=== PATIENT | female | born 1995 | race Asian ===

== ENCOUNTER 2021-01-01 15:30 | Emergency (ER) | payer SELFPAY ==
[~2021-01-01] VITALS: Ht 160 cm; Wt 52.3 kg
[2021-01-01 15:49] VITALS: BP 140/74
[2021-01-01] MEDS ORDERED: IV NORMAL SALINE 1,000ML 1,000 ML IV ONE (16:00)
[2021-01-01 16:13] LABS: BASO % 0 % (0-3); EOS % 0 % (0-3); HEMATOCRIT 42.5 % (36.0-47.0); HEMOGLOBIN 14.1 g/dL (12.0-15.5); LYMPH # 1.6 x10^3/uL (1.0-4.8); LYMPH % 17 % (24-48); MEAN CORPUSCULAR HEMOGLOBIN 28 pg (25-35); MEAN CORPUSCULAR HGB CONC 33 g/dL (31-37); MEAN CORPUSCULAR VOLUME 85 fL (79-100); MONO # 0.3 x10^3/uL (0.0-1.1); MONO % 3 % (0-9); NEUT # 7.4 x10^3uL (1.8-7.7); NEUT % 79 % (31-73); PLATELET COUNT 268 x10^3/uL (140-400); RED BLOOD COUNT 5.03 x10^6/uL (3.50-5.40); RED CELL DISTRIBUTION WIDTH 14.2 % (11.5-14.5); WHITE BLOOD COUNT 9.4 x10^3/uL (4.0-11.0)
[2021-01-01 16:16] LABS: CREATININE 0.6 mg/dL (0.6-1.0); GFR 123.9; POTASSIUM 3.6 mmol/L (3.5-5.1)
--- NOTE | 2021-01-01 16:17 | PHYS DOC ---
Past History Past Surgical History: No Surgical History Alcohol Use: None General Adult EDM: Chief Complaint: WEAKNESS/GENERALIZED HPI: HPI: 25-year-old female presents with intermittent right-sided weakness. The patient has been having episodes where she feels more numb or weak in the right side in both the upper and lower extremities. These episodes last from a couple minutes up to 10 minutes. She has been having these for several weeks. She went to her primary physician initially she might have a pinched nerve in her neck. She has been seeing a chiropractor which helps some but not completely. Today she has had persistent neck pain at the base of the occiput. Her neck is not stiff. She has free movement but there is a throbbing pain in that location. She went to the primary office and had an episode where the numbness on her right side made her fall. She describes it as not being able to tell her body what to do because she is not getting the feedback of feeling. She denies any significant medical history. She does not drink alcohol. She does not do drugs. She does not feel ill in any other way. Denies fever or chills. Review of Systems: Review of Systems: Constitutional: Denies fever or chills Eyes: Denies change in visual acuity HENT: Denies nasal congestion or sore throat Respiratory: Denies cough or shortness of breath Cardiovascular: Denies chest pain or edema GI: Denies abdominal pain, nausea, vomiting, bloody stools or diarrhea : Denies dysuria Musculoskeletal: Denies back pain or joint pain Integument: Denies rash Neurologic: numbness, weakness, right side. Denies headache, focal weakness or sensory changes Endocrine: Denies polyuria or polydipsia Lymphatic: Denies swollen glands Psychiatric: Denies depression or anxiety Current Medications: Current Meds: Current Medications Medications (Trade) Dose Ordered Sig/Minda Start Time Stop Time Status Last Admin Dose Admin Sodium Chloride 1,000 ml @ 1,000 mls/hr 1X ONCE 01/01/21 16:00 01/01/21 16:59 Allergies: Allergies: Allergies Coded Allergies Type Severity Reaction Last Updated Verified No Known Drug Allergies 01/01/21 No Physical Exam: PE: Constitutional: Well developed, well nourished, no acute distress, non-toxic appearance. [] HENT: Normocephalic, atraumatic, bilateral external ears normal, oropharynx moist, no oral exudates, nose normal. [] Eyes: PERRLA, EOMI, conjunctiva normal, no discharge. [] Neck: Normal range of motion, no tenderness, supple, no stridor. [] Cardiovascular:Heart rate regular rhythm, no murmur [] Lungs & Thorax: Bilateral breath sounds clear to auscultation [] Abdomen: Bowel sounds normal, soft, no tenderness, no masses, no pulsatile masses. [] Skin: Warm, dry, no erythema, no rash. [] Back: No tenderness, no CVA tenderness. [] Extremities: No tenderness, no cyanosis, no clubbing, ROM intact, no edema. [] Neurologic: Alert and oriented X 3, normal motor function, normal sensory function, no focal deficits noted. [] Psychologic: Affect normal, judgement normal, mood normal. [] Current Patient Data: Labs: Laboratory Tests Test 01/01/21 15:40 Glucose (Fingerstick) 119 mg/dL (70-99) H Vital Signs: Vital Signs Date Time Temp Pulse Resp B/P (MAP) Pulse Ox O2 Delivery O2 Flow Rate FiO2 01/01/21 15:49 98.4 87 18 140/74 99 EKG: EKG: Sinus rhythm, rate 88, normal axis, no ST elevation or depression. [] Radiology/Procedures: Radiology/Procedures: [] Impressions: EXAM: Head and cervical spine CT without contrast. HISTORY: Right-sided numbness and neck pain. TECHNIQUE: Computed tomographic images of the head and cervical spine were obtained without contrast. *One or more of the following individualized dose reduction techniques were utilized for this examination: 1. Automated exposure control. 2. Adjustment of the mA and/or kV according to patient size. 3. Use of iterative reconstruction technique. COMPARISON: None. FINDINGS: Head: There is a large heterogeneous hyperdense mass containing cystic components and coarse calcifications within the right cerebral hemisphere. This extends through the right frontal and parietal lobes near the vertex and involves the right lateral ventricle. This measures approximately 6.5 cm anteroposteriorly by 4.4 cm transversely by 7.0 cm craniocaudally. The largest cystic component measures 3.3 cm along the superior lateral aspect of the mass. The mass is associated with extensive surrounding edema and effacement of the right greater than left cerebral sulci. There is also 1.5 cm leftward midline shift and dilatation of the posterior left lateral ventricle likely due to a component of ventricular entrapment. There is cerebellar tonsillar ectopia and effacement of the foramen magnum. Given the aforementioned mass, this likely due to herniation rather than a Chiari malformation. There is an enlarged sella. There is no convincing intracranial hemorrhage. The orbits and visual is paranasal sinuses mastoid air cells are unremarkable. There is no suspicious calvarial lesion. The mastoid air cells are clear. Cervical spine: There is no listhesis. The vertebral galan are normal in height and the disc spaces are preserved. There is no fracture or suspicious lytic or sclerotic osseous lesion. There is no foraminal or central canal stenosis. There is no neck lymphadenopathy. The lung apices are unremarkable. IMPRESSION: 1. Large heterogeneous hyperdense mass containing cystic components and coarse calcifications within the right cerebral hemisphere, either originating from or extending into the right lateral ventricle and resulting in significant surround ing edema. There is effacement of the cerebral sulci, leftward midline shift, suspected entrapment of the left lateral ventricle and cerebellar tonsillar herniation. The mass measures approximately 7.0 cm in maximum dimension. This can be better characterized with a brain MRI with and without contrast. Emergent neurosurgical consultation is indicated. 2. Enlarged sella. This is likely due to increased intracranial pressure from the aforementioned mass and can be better assessed with MRI. 3. No evidence of acute hemorrhage and no acute finding involving the cervical spine or significant cervical foraminal or central canal stenosis. Findings were discussed with Dr. Herrera in the ED at 1645 hours on . FOR INTERNAL CODING PURPOSES RESULT CODE: (C) Electronically signed by: Jazmyne La MD (01/01/2021 5:09 PM) [id number] DICTATED AND SIGNED BY: JAZMYNE LA MD DATE: 01/01/211644 CC: SERGIO HERRERA DO; PCP,NO ~MTH0 0 Heart Score: C/O Chest Pain: N/A Risk Factors: Risk Factors: DM, Current or recent (<one month) smoker, HTN, HLP, family history of CAD, obesity. Risk Scores: Score 0 - 3: 2.5% MACE over next 6 weeks - Discharge Home Score 4 - 6: 20.3% MACE over next 6 weeks - Admit for Clinical Observation Score 7 - 10: 72.7% MACE over next 6 weeks - Early Invasive Strategies Course & Med Decision Making: Course & Med Decision Making Pertinent Labs and Imaging studies reviewed. (See chart for details) The patient's labs are unremarkable. Her CT of the head and cervical spine reveals a large likely intraparenchymal mass with some calcifications. No active bleed. There is midline shift and approaching uncal herniation. Official read is not available at this time. This is a critical diagnosis and the patient needs emergent air transport. We have alerted the helicopter service. I have spoken with the transfer center at and they have a neurosurgical bed. Pending neurosurgeon approval of transfer. has accepted the patient, Dr. Thom Carter. Official CT shows large mass up to 7 cm in greatest dimension with uncal herniation and midline shift. 38 minutes of critical care time was spent on this patient exclusive of other billable procedures. This time was spent in direct care, imaging interpretat ion, coordination of transfer, physician to physician consult, patient education. [] Dragon Disclaimer: Dragon Disclaimer: This electronic medical record was generated, in whole or in part, using a voice recognition dictation system. Departure Departure: Impression: Primary Impression: Neoplasm of brain causing mass effect on adjacent structures Disposition: 02 SHORT TERM HOSPITAL Condition: CRITICAL SERGIO HERRERA DO Jan 01, 2021 16:17
[2021-01-01 16:21] LABS: ALBUMIN 4.1 g/dL (3.4-5.0); ALBUMIN/GLOBULIN RATIO 1.2 (1.0-1.7); MAGNESIUM 1.7 mg/dL (1.8-2.4); TOTAL BILIRUBIN 0.5 mg/dL (0.2-1.0); TOTAL PROTEIN 7.6 g/dL (6.4-8.2)
[2021-01-01] MEDS ORDERED: IOHEXOL 300 MG/ML 75 ML VIAL. IV ONE (16:30)
--- NOTE | 2021-01-01 17:11 | RAD ---
EXAM: Head and cervical spine CT without contrast. HISTORY: Right-sided numbness and neck pain. TECHNIQUE: Computed tomographic images of the head and cervical spine were obtained without contrast. *One or more of the following individualized dose reduction techniques were utilized for this examina tion: 1. Automated exposure control. 2. Adjustment of the mA and/or kV according to patient size. 3. Use of iterative reconstruction technique. COMPARISON: None. FINDINGS: Head: There is a large heterogeneous hyperdense mass containing cystic components and coarse calcific ations within the right cerebral hemisphere. This extends through the right frontal and parietal lobe s near the vertex and involves the right lateral ventricle. This measures approximately 6.5 cm latisha posteriorly by 4.4 cm transversely by 7.0 cm craniocaudally. The largest cystic component measures 3. 3 cm along the superior lateral aspect of the mass. The mass is associated with extensive surrounding edema and effacement of the right greater than left cerebral sulci. There is also 1.5 cm leftward midline shift and dilatation of the posterior left lat eral ventricle likely due to a component of ventricular entrapment. There is cerebellar tonsillar ect opia and effacement of the foramen magnum. Given the aforementioned mass, this likely due to herniati on rather than a Chiari malformation. There is an enlarged sella. There is no convincing intracranial hemorrhage. The orbits and visual is paranasal sinuses mastoid air cells are unremarkable. There is no suspicious calvarial lesion. The mastoid air cells are clear. Cervical spine: There is no listhesis. The vertebral galan are normal in height and the disc spaces ar e preserved. There is no fracture or suspicious lytic or sclerotic osseous lesion. There is no forami nal or central canal stenosis. There is no neck lymphadenopathy. The lung apices are unremarkable. IMPRESSION: 1. Large heterogeneous hyperdense mass containing cystic components and coarse calcifications within the right cerebral hemisphere, either originating from or extending into the right lateral ventricle and resulting in significant surrounding edema. There is effacement of the cerebral sulci, leftward m idline shift, suspected entrapment of the left lateral ventricle and cerebellar tonsillar herniation. The mass measures approximately 7.0 cm in maximum dimension. This can be better characterized with a brain MRI with and without contrast. Emergent neurosurgical consultation is indicated. 2. Enlarged sella. This is likely due to increased intracranial pressure from the aforementioned mass and can be better assessed with MRI. 3. No evidence of acute hemorrhage and no acute finding involving the cervical spine or significant c ervical foraminal or central canal stenosis. Findings were discussed with Dr. Leger in the ED at 1645 hours on . FOR INTERNAL CODING PURPOSES RESULT CODE: (C) Electronically signed by: Jazmyne Krause MD (01/01/2021 5:09 PM) [id number]
--- NOTE | 2021-01-01 17:59 | EKG ---
[address] [address] Test Date: 2021-01-01 Test Time: 15:43:45 Pat Name: PATRICIA LEBRON Department: Room: Gender: F Iridologist: THU : 1995 Requested By: SERGIO HERRERA Order Number: [id number] Reading MD: Measurements Intervals [place] Rate: 88 P: 58 WV: 156 QRS: 42 QRSD: 82 T: 34 QT: 344 QTc: 420 Interpretive Statements SINUS RHYTHM NORMAL ECG RI6.02 No previous ECG available for comparison
== END 2021-01-01 15:34 | disposition short-term general hospital (02) ==
LOC: ER 15:30
DX: D49.6 Neoplasm of unspecified behavior of brain (principal); Z20.822 Contact with and (suspected) exposure to COVID-19
CPT/HCPCS: 36415; 70450; 72125; 80053; 82947; 83735; 84443; 85025; 87426; 93005; 96360; 99285; C9803; J7030; U0003

== ENCOUNTER 2021-04-05 23:16 | Emergency (ER) | payer BC, OTHER ==
[~2021-04-05] VITALS: Ht 160 cm; Wt 52.3 kg
--- NOTE | 2021-04-05 23:24 | PHYS DOC ---
Past History Past Medical History: Seizure Past Surgical History: No Surgical History Alcohol Use: None General Adult HPI: HPI: ".. I woke up with the uncontrolable movements on my Lt side... more in my arm.. tingle.. some head ache... I just completed my 30th radiation tx at ... after my brain surgery... .." I have a brain cancer.. unusual.. Cysts.. it does not respond to Chemo.. actually I doing quite well until tonight.. I was planning on going back to work..." Patient is a 25 year old female who presents with above hx of numbness and tinging feeling and uncontrollable movements on her left side. Patient states the discoordination are uncontrollable flapping almost seizure-like activity in left upper arm is uncontrollable since awakening. Patient did state prior to her 30 radiation treatments and surgery she did have some tremor or unusual movements in left arm and leg but that had all gone away after treatment. Until this morning. The patient in the past has been Keppra which was stopped more than a week ago. Patient now on no antiseizure meds.. Pt. has been following at oncology and oncology surgery for her treatment in the past month. Patient denies any other changes in meds. No history of fever or chills. No history of recent travel. No history of sick ill contacts. No history of trauma. Patient initially seen here back in January 01, 2021 where she presented with intermittent right-sided weakness and numbness. Patient had been seeing a chiropractor with minimal improvement of her symptoms at that time. On that visit patient had a CT of head and a hyperdense cystic mass was found course calcifications. Patient was then eventually transferred to for MRI and further evaluation and neurosurgery evaluation because of findings suggestive of increasing cerebral pressure. Since that time patient is followed almost singularly at for her treatments. Review of Systems: Review of Systems: Constitutional: Denies fever or chills Eyes: Denies change in visual acuity HENT: Denies nasal congestion or sore throat Respiratory: Denies cough or shortness of breath Cardiovascular: Denies chest pain or edema GI: Denies abdominal pain, nausea, vomiting, bloody stools or diarrhea : Denies dysuria Musculoskeletal: Denies back pain or joint pain Integument: Denies rash Neurologic: Complains of mild headache, complains of left upper arm and leg focal weakness, numbness sensory changes in hand. Patient also complaining of kind of flap. Jerking movements of left arm which she cannot control. Endocrine: Denies polyuria or polydipsia Lymphatic: Denies swollen glands Psychiatric: Very anxious and tearful Family History: Family History: Noncontributory to presentation. Current Medications: Current Meds: See nursing for home meds Allergies: Allergies: Allergies Coded Allergies Type Severity Reaction Last Updated Verified No Known Drug Allergies 01/01/21 No Physical Exam: PE: Constitutional: In acute emotional distress, non-toxic appearance. [] HENT: Normocephalic, well healed right parietal scar, bilateral external ears normal, oropharynx moist, no oral exudates, nose normal. [] Eyes: PERRLA, EOMI, conjunctiva normal, no discharge. No obvious field defects Neck: Normal range of motion, no tenderness, supple, no stridor. [] Cardiovascular:Heart rate regular rhythm, no murmur [] Lungs & Thorax: Bilateral breath sounds equal at apex on auscultation [] Abdomen: Bowel sounds normal, soft, no tenderness, no masses, no pulsatile masses. [] Skin: Warm, dry, no erythema, no rash. [] Back: No tenderness, no CVA tenderness. [] Extremities: No tenderness, no cyanosis, no clubbing, ROM intact, no edema. [] Neurologic: Alert and oriented X 3, uncontrollable motor movements in left upper arm more than left lower leg, numbness sensation in left hand,, left-sided focal deficits noted. [] Psychologic: Affect anxious, tearful, judgement normal, mood depressed. EKG: EKG: My interpretation of EKG shows a sinus rhythm at 82 bpm. No acute morphology. Time of EKG is 00 28 minutes (old time )[] Radiology/Procedures: Radiology/Procedures: [[address] [address] IMAGING REPORT Signed PATIENT: PATRICIA LEBRON ACCOUNT: [id number] : 1995 LOCATION: ER AGE: 25 SEX: F EXAM STATUS: REG ER ORD. PHYSICIAN: JAI DUKE MD REASON: seizure, brain mass, SURGERY-DEC 2020, LT SIDE WEAK x A FEW HOURS PROCEDURE: CT ANGIOGRAPHY HEAD AND NECK PQRS Compliance Statement: One or more of the following individualized dose reduction techniques were utilized for this examination: 1. Automated exposure control 2. Adjustment of the mA and/or kV according to patient size 3. Use of iterative reconstruction technique CTA HEAD AND NECK W/WO CONTRAST Clinical Indication: Reason: seizure, brain mass, SURGERY-DEC 2020, LT SIDE WEAK x A FEW HOURS Comparison: CT head without contrast, same day and January 01, 2021. Technique: Helical CT imaging from inferior to the aortic arch to the skull vertex is performed after 75 cc of Omnipaque [address] angiogram protocol. 3-D MIP reconstructions of the cervical carotid arteries and [place] of [place] are performed. PQRS Compliance Statement - Stenosis calculations for CT, MR and conventional angiography are based upon measurement of the distal ICA diameter in accordance with the NASCET methodology. Stenosis calculations for carotid ultrasound studies are derived from validated velocity criteria which are known to correlate with the NASCET methodology. Findings: Aortic arch branches are patent. The cervical carotid arteries are patent. Carotid bifurcations are normal. No evidence of dissection. The cervical vertebral arteries are patent, the left vertebral artery is dominant. Limited evaluation of the proximal left vertebral artery due to artifact from dense con trast in adjacent vein. The basilar artery is patent. Posterior circulation is intact, there is persistent origin of the left [employer] SYSTEM DIRECTOR. There is a small caliber right posterior communicating artery. The distal internal carotid arteries are patent. The anterior circulation is intact. No intracranial artery stenosis or aneurysm is identified. The dural venous sinuses are patent. The right cerebral hemisphere hyperdense mass does not demonstrate appreciable enhancement. Noncontrast CT head findings are redemonstrated. There is no cervical adenopathy. The thyroid is symmetric. The upper lungs are clear. The cervical spine alignment is maintained. IMPRESSION: 1. No intracranial large vessel occlusion. 2. Normal CTA neck. Electronically signed by: Sahil Mcfarlane MD (04/06/2021 1:58 AM) [facility] DICTATED AND SIGNED BY: SAHIL MCFARLANE MD DATE: 04/06/21 0151 CC: JAI DUKE MD; PCP,NO ~MTH0 0 ][address] [address] IMAGING REPORT Signed PATIENT: PATRICIA LEBRON ACCOUNT: [id number] : 1995 LOCATION: ER AGE: 25 SEX: F EXAM STATUS: REG ER ORD. PHYSICIAN: JAI DUKE MD REASON: hx sz, cancera PROCEDURE: PORTABLE CHEST 1V XR CHEST 1V Clinical Indication: Reason: hx sz, cancer Comparison: None. Findings: The cardiomediastinal silhouette is normal. Lungs are clear. There is no pneumothorax. No pleural effusion is appreciated. No acute bone abnormality. IMPRESSION: No acute cardiopulmonary process. Electronically signed by: Sahil Mcfarlane MD (04/06/2021 1:51 AM) [facility] DICTATED AND SIGNED BY: SAHIL MCFARLANE MD DATE: 04/06/21 0150 CC: JAI DUKE MD; PCP,NO ~MTH0 [address] [place] [address] IMAGING REPORT Signed PATIENT: PATRICIA LEBRON ACCOUNT: [id number] : 1995 LOCATION: ER AGE: 25 SEX: F EXAM STATUS: REG ER ORD. PHYSICIAN: JAI DUKE MD REASON: seizure, brain mass PROCEDURE: CT HEAD WO CONTRAST PQRS Compliance Statement: One or more of the following individualized dose reduction techniques were utilized for this examination: 1. Automated exposure control 2. Adjustment of the mA and/or kV according to patient size 3. Use of iterative reconstruction technique CT HEAD WITHOUT CONTRAST History: Reason: seizure, brain mass Comparison: CT head without contrast January 01, 2021. Procedure: Axial images are obtained of the head from the skull base through the vertex without IV contrast. Findings: There is a large right-sided craniotomy. The ventricles and sulci are normal. There is mild right frontal prominent extra-axial CSF. The hyperdense mass with coarse calcifications involving the right frontoparietal lobe with involvement of the right lateral ventricle is significant smaller. The mass now measures approximately 2.5 cm AP by 2.6 cm transverse by 3 cm craniocaudal. No significant surrounding edema is now identified. There is CSF attenuation of the right parietal lobe that is likely encephalomalacia. This may be postsurgical. There is no midline shift or mass effect. The basilar cisterns are patent. No acute loss of quiles-white matter differentiation is identified. There is no acute intraparenchymal hemorrhage. The visualized paranasal sinuses are clear. Mastoid air cells are well aerated. IMPRESSION: 1. No acute intracranial hemorrhage or infarct. 2. The right cerebral hemisphere cystic and solid mass is significantly smaller. No surrounding edema is identified. There are postsurgical changes. Electronically signed by: Sahil Mcfarlane MD (04/06/2021 1:45 AM) [facility] DICTATED AND SIGNED BY: SAHIL MCFARLANE MD DATE: 04/06/21136 CC: JAI DUKE MD; PCP,NO ~MTH0 0 Heart Score: C/O Chest Pain: N/A HEART Score for Chest Pain: HEART Score for Chest Pain Response (Comments) Value History Slighlty/Non-Suspicious 0 ECG Normal 0 Age < 45 0 Risk Factors 1 or 2 Risk Factors 1 Troponin < Normal Limit 0 Total 1 Risk Factors: Risk Factors: DM, Current or recent (<one month) smoker, HTN, HLP, family history of CAD, obesity. Risk Scores: Score 0 - 3: 2.5% MACE over next 6 weeks - Discharge Home Score 4 - 6: 20.3% MACE over next 6 weeks - Admit for Clinical Observation Score 7 - 10: 72.7% MACE over next 6 weeks - Early Invasive Strategies Course & Med Decision Making: Course & Med Decision Making Pertinent Labs and Imaging studies reviewed. (See chart for details) Pt. Seizure like activity had immediate resolution with Ativan and Keppra. Discussed presentation with [facility] transfer. Advised transfer to - Hem/ Onc. Dr. Mcclendon accepting Impression: 1. Atypical Seizure Activity- Lt side > Upper ext. 2. Hx. Cystic Neuro Mass- - Recent Brain surgery and 30 daily Radiation Treatments 3. Anemia with microcytic and hypochromic indices- Hgb= 10.9, MCV 91/MHC 23 4. COVID rapid pending at time of transfer [] Dragon Disclaimer: Dragzenaida Disclaimer: This electronic medical record was generated, in whole or in part, using a voice recognition dictation system. Departure Departure: Referrals: PCP,NO (PCP) Mere Disclaimer This chart was dictated in whole or in part using Voice Recognition software in a busy, high-work load, and often noisy Emergency Department environment. It may contain unintended and wholly unrecognized errors or omissions. JAI DUKE MD Apr 05, 2021 23:24
[2021-04-06] MEDS ORDERED: CONTRAST GIVEN. MC PRN (00:45)
[2021-04-06 00:49] LABS: BASO % 1 % (0-3); EOS # 0.2 x10^3/uL (0.0-0.7); EOS % 3 % (0-3); HEMATOCRIT 33.9 % (36.0-47.0); HEMOGLOBIN 10.9 g/dL (12.0-15.5); LYMPH % 31 % (24-48); MEAN CORPUSCULAR HEMOGLOBIN 23 pg (25-35); MEAN CORPUSCULAR HGB CONC 32 g/dL (31-37); MEAN CORPUSCULAR VOLUME 71 fL (79-100); MONO # 0.6 x10^3/uL (0.0-1.1); MONO % 9 % (0-9); NEUT # 3.6 x10^3uL (1.8-7.7); NEUT % 57 % (31-73); PLATELET COUNT 302 x10^3/uL (140-400); RED BLOOD COUNT 4.75 x10^6/uL (3.50-5.40); RED CELL DISTRIBUTION WIDTH 16.3 % (11.5-14.5); WHITE BLOOD COUNT 6.4 x10^3/uL (4.0-11.0)
[2021-04-06 00:54] LABS: BARBITURATES NEG (NEG); BENZODIAZEPINES NEG (NEG); CANNABINOIDS POS (NEG); COCAINE NEG (NEG); METHADONE NEG (NEG); OPIATES NEG (NEG); PHENCYCLIDINE NEG (NEG)
[2021-04-06 00:55] LABS: AMPHETAMINE/METHAMPHETAMINE NEG (NEG)
[2021-04-06 00:58] LABS: CALCIUM 9.2 mg/dL (8.5-10.1); CREATININE 0.7 mg/dL (0.6-1.0); GFR 103.7; POTASSIUM 3.9 mmol/L (3.5-5.1)
[2021-04-06] MEDS ORDERED: IOHEXOL 350 MG/ML 100 ML VIAL. IV ONE (01:00)
[2021-04-06 01:11] LABS: MAGNESIUM 1.9 mg/dL (1.8-2.4)
--- NOTE | 2021-04-06 01:16 | EKG ---
[address] [address] Test Date: 2021-04-06 Test Time: 00:28:13 Pat Name: PATRICIA LEBRON Department: Room: Gender: F Fire Alarm Mechanic: : 1995 Requested By: JAI DUKE Order Number: [id number] Reading MD: Saman Early Measurements Intervals [place] Rate: 82 P: 69 [place]: 160 QRS: 45 QRSD: 78 T: 39 QT: 344 QTc: 405 Interpretive Statements SINUS RHYTHM NORMAL ECG RI6.02 Compared to ECG 01/01/2021 15:43:45 No significant changes Electronically Signed On 04-07-2021 9:26:21 UPHOLSTERY MECHANIC by Saman Early
[2021-04-06 01:27] LABS: BACTERIA,URINE 0 /HPF (0-FEW); BILIRUBIN,URINE NEG (NEG); CLARITY,URINE CLEAR; COLOR,URINE YELLOW; GLUCOSE,URINE NEG (NEG); NITRITE,URINE NEG (NEG); SQUAMOUS EPITHELIAL CELL,UR FEW /LPF; UROBILINOGEN,URINE 0.2 mg/dL (0.2 mg/dL)
[2021-04-06] MEDS ORDERED: levETIRAcetam 500 MG/5 ML VIAL IV ONE (01:27)
[2021-04-06] MEDS ORDERED: IV NORMAL SALINE 100ML 100 ML ONE (01:27)
--- NOTE | 2021-04-06 01:47 | RAD ---
PQRS Compliance Statement: One or more of the following individualized dose reduction techniques were utilized for this examinat ion: 1. Automated exposure control 2. Adjustment of the mA and/or kV according to patient size 3. Use of iterative reconstruction technique CT HEAD WITHOUT CONTRAST History: Reason: seizure, brain mass Comparison: CT head without contrast January 01, 2021. Procedure: Axial images are obtained of the head from the skull base through the vertex without IV co ntrast. Findings: There is a large right-sided craniotomy. The ventricles and sulci are normal. There is mild right fro ntal prominent extra-axial CSF. The hyperdense mass with coarse calcifications involving the right fr ontoparietal lobe with involvement of the right lateral ventricle is significant smaller. The mass no w measures approximately 2.5 cm AP by 2.6 cm transverse by 3 cm craniocaudal. No significant surround ing edema is now identified. There is CSF attenuation of the right parietal lobe that is likely encep halomalacia. This may be postsurgical. There is no midline shift or mass effect. The basilar cisterns are patent. No acute loss of quiles-white matter differentiation is identified. There is no acute intr aparenchymal hemorrhage. The visualized paranasal sinuses are clear. Mastoid air cells are well aerated. IMPRESSION: 1. No acute intracranial hemorrhage or infarct. 2. The right cerebral hemisphere cystic and solid mass is significantly smaller. No surrounding dali a is identified. There are postsurgical changes. Electronically signed by: Sahil Mcfarlane MD (04/06/2021 1:45 AM) [facility]
[2021-04-06 01:50] VITALS: BP 104/54
--- NOTE | 2021-04-06 01:53 | RAD ---
XR CHEST 1V Clinical Indication: Reason: hx sz, cancer Comparison: None. Findings: The cardiomediastinal silhouette is normal. Lungs are clear. There is no pneumothorax. No pleural eff usion is appreciated. No acute bone abnormality. IMPRESSION: No acute cardiopulmonary process. Electronically signed by: Sahil Mcfarlane MD (04/06/2021 1:51 AM) [facility]
[2021-04-06 01:57] LABS: PLT ESTIMATE ADEQUATE (ADEQUATE)
--- NOTE | 2021-04-06 02:00 | RAD ---
PQRS Compliance Statement: One or more of the following individualized dose reduction techniques were utilized for this examinat ion: 1. Automated exposure control 2. Adjustment of the mA and/or kV according to patient size 3. Use of iterative reconstruction technique CTA HEAD AND NECK W/WO CONTRAST Clinical Indication: Reason: seizure, brain mass, SURGERY-DEC 2020, LT SIDE WEAK x A FEW HOURS Comparison: CT head without contrast, same day and January 01, 2021. Technique: Helical CT imaging from inferior to the aortic arch to the skull vertex is performed after 75 cc of Omnipaque [address] angiogram protocol. 3-D MIP reconstructions of the [place] carotid arteries and [place] are performed. PQRS Compliance Statement - Stenosis calculations for CT, MR and conventional angiography are based u rocio measurement of the distal ICA diameter in accordance with the NASCET methodology. Stenosis calcu lations for carotid ultrasound studies are derived from validated velocity criteria which are known t o correlate with the NASCET methodology. Findings: Aortic arch branches are patent. The cervical carotid arteries are patent. Carotid bifurcations are n ormal. No evidence of dissection. The cervical vertebral arteries are patent, the left vertebral espinoza ry is dominant. Limited evaluation of the proximal left vertebral artery due to artifact from dense c ontrast in adjacent vein. The basilar artery is patent. Posterior circulation is intact, there is per sistent origin of the left [employer]. There is a small caliber right posterior communicating artery. The distal internal carotid arteries are patent. The anterior circulation is intact. No intracranial artery stenosis or aneurysm is identified. The dural venous sinuses are patent. The right cerebral hemisphere hyperdense mass does not demonstra te appreciable enhancement. Noncontrast CT head findings are redemonstrated. There is no cervical adenopathy. The thyroid is symmetric. The upper lungs are clear. The cervical spine alignment is maintained. IMPRESSION: 1. No intracranial large vessel occlusion. 2. Normal CTA neck. Electronically signed by: Sahil Mcfarlane MD (04/06/2021 1:58 AM) [facility]
[2021-04-06] MEDS ORDERED: oxyCODONE/APAP 5/325 1 TAB TABLET PO ONE (04:00)
== END 2021-04-06 03:40 | disposition short-term general hospital (02) ==
LOC: ER 23:16
DX: R56.9 Unspecified convulsions (principal); D50.9 Iron deficiency anemia, unspecified; R51.9 Headache, unspecified
CPT/HCPCS: 36415; 70450; 70496; 70498; 71045; 80048; 80307; 81001; 81025; 82550; 83735; 83880; 84484; 85025; 85610; 85730; 93005; 96365; 96375; 99285; J1953; J2060; Q9967